=== PATIENT | male | born 1965 | race Hispanic/Latino ===

== ENCOUNTER → 2018-12-23 | Outpatient (CLI) | payer OTHER ==
--- NOTE | 2018-12-23 13:41 | Diagnostic Imaging Report ---
EXAMINATION: PA and lateral views of the chest. COMPARISON: None CLINICAL HISTORY: Cough for 3 weeks DISCUSSION: Lines/tubes: None. Lungs: The lungs are well inflated. 4-5 mm nodular density projecting near the left costophrenic sulcus on the frontal view. There is no evidence of pneumonia or pulmonary edema. Pleura: There is no pleural effusion or pneumothorax. Heart and mediastinum: Cardiomediastinal silhouette is unremarkable. Pulmonary vasculature is normal. Bones and soft tissues: No acute bony abnormalities. IMPRESSION: No acute cardiopulmonary abnormalities. 4-5 mm nodular density in the left lower lung may represent a calcified granuloma and less likely a pulmonary nodule. Prior films, if available, would be helpful for comparison. If no prior films can be obtained, recommend chest PA and lateral in 2-3 months to document stability. Alternatively, a chest CT may be obtained for further evaluation. Signed by: Dr. Douglas Downey M.D. on 12/23/2018 1:37 PM
== END ==
LOC: RAD 10:00
PROVIDERS: ATTEND Internal Medicine
DX: J41.0 Simple chronic bronchitis (principal)
CPT/HCPCS: 71046